=== PATIENT | male | born 1955 | race Caucasian/White ===

== ENCOUNTER 2018-07-28 03:05 | Inpatient (IN) | payer MEDICARE, MEDICAID ==
[~2018-07-28] VITALS: Ht 175.3 cm; Wt 64.9 kg
[2018-07-28] VITALS (50 sets, daily range): BP systolic 54–176; BP diastolic 14–111
[2018-07-28] MEDS ORDERED: ACETAMINOPHEN 325MG TABLET PO STA (03:37)
[2018-07-28] MEDS ORDERED: PIPERACILLIN/TAZ 3.375G PREMIX 50 ML IV ONE (03:45)
[2018-07-28] MEDS ORDERED: VANCOMYCIN 1 G PREMIX 200 ML IV ONE (03:45)
[2018-07-28] MEDS ORDERED: AZITHROMYCIN 500 MG in DEXT 5% WATER 250 ML IV ONE (03:45)
[2018-07-28 04:39] LABS: HEMATOCRIT. 38.9 % (42.0-52.0); HEMOGLOBIN. 12.8 g/dL (14.0-18.0); MEAN CORPUSCULAR HEMOGLOBIN 29.4 pg (28.0-32.0); MEAN CORPUSCULAR VOLUME 89.5 fL (80.0-94.0); MEAN PLATELET VOLUME 8.9 fl (7.4-10.4); PLATELET 195 x1000/uL (130-400); RED BLOOD CELL COUNT 4.35 mill/uL (4.7-6.1)
[2018-07-28 04:43] LABS: CHLORIDE 100 mEq/L (98-107)
[2018-07-28 04:45] LABS: INR 1.1; PARTIAL THROMBOPLASTIN TIME 33.2 sec (23.4-31.0); PROTHROMBIN TIME 11.2 sec (9.1-11.1)
[2018-07-28] MEDS ORDERED: SODIUM CHLORIDE 0.9% 1000ML BAG (SEPSIS BOLUS) IV ONE (05:00)
[2018-07-28 06:24] LABS: CLARITY URINE CLEAR (CLEAR); COLOR URINE YELLOW (YELLOW); KETONES URINE 1+ (NEGATIVE); LEUKOCYTE ESTERASE URINE NEGATIVE (NEGATIVE); NITRITE URINE NEGATIVE (NEGATIVE); OCCULT BLOOD URINE 2+ (NEGATIVE); PROTEIN URINE 2+ (NEGATIVE); SPECIFIC GRAVITY URINE 1.027 (1.005-1.030); UROBILINOGEN URINE 0.2 E.U./dL (0.2-1.0)
[2018-07-28 06:42] LABS: PLATELET ESTIMATE NORMAL
[2018-07-28] MEDS ORDERED: IPRATROPIUM/ALBUTEROL 0.5-3(2.5)MG/3ML NEB HHN PRN ×2 (11:15→14:45)
[2018-07-28] MEDS ORDERED: ACETAMINOPHEN 325MG TABLET PO PRN (11:15)
[2018-07-28] MEDS ORDERED: GUAIFENESIN-DM 200MG-20MG/10ML UDC PO PRN (11:15)
[2018-07-28] MEDS: ENOXAPARIN 40MG/0.4ML SYR SUBCUT SCH (11:30)
[2018-07-28] MEDS: NOREPINEPHRINE 4 MG in DEXT 5% WATER 246 ML IV PRN ×2 (13:00→17:00)
[2018-07-28] MEDS ORDERED: CEFTRIAXONE 1 G PREMIX 50 ML IV SCH (13:00)
[2018-07-28] MEDS: MIDODRINE HCL 5MG TABLET PO SCH ×2 (13:51→17:53)
[2018-07-28 14:26] LABS: HEPATITIS B SURFACE ANTIGEN NEGATIVE
[2018-07-28 14:56] LABS: HEPATITIS A AB IGM NEGATIVE (NEGATIVE)
[2018-07-28] MEDS: PHENYLEPHRINE 40 MG in DEXT 5% WATER 246 ML IV PRN (18:17)
[2018-07-28] MEDS: LORAZEPAM 2MG/ML CPJ IV PRN (19:00)
[2018-07-28] MEDS ORDERED: CARB200C4 MT (19:17)
[2018-07-28] MEDS ORDERED: AMIT25TA9 MT (19:17)
[2018-07-28] MEDS ORDERED: DIVA500T51 MT (19:17)
[2018-07-28] MEDS ORDERED: BUSP15TA3 MT (19:17)
[2018-07-28] MEDS: BUDESONIDE 0.5MG/2ML NEB HHN SCH (20:02)
[2018-07-28] MEDS: IPRATROPIUM BROMIDE (0.02%) 0.5MG/2.5ML NEB HHN SCH (20:02)
[2018-07-28] MEDS: DEXT 5%/0.45% NACL KCL 20MEQ/L 1,000 ML IV SCH (22:48)
[2018-07-29] VITALS (87 sets, daily range): BP systolic 35–128; BP diastolic 16–88
[2018-07-29] MEDS: IPRATROPIUM BROMIDE (0.02%) 0.5MG/2.5ML NEB HHN SCH ×6 (00:12→20:15)
[2018-07-29] MEDS: ACETYLCYSTEINE 100MG/ML 10% VIAL 4ML INH SCH ×2 (00:12→08:38)
[2018-07-29] MEDS: LORAZEPAM 2MG/ML CPJ IV PRN ×4 (01:33→22:24)
[2018-07-29] MEDS: NOREPINEPHRINE 4 MG in DEXT 5% WATER 246 ML IV PRN ×3 (02:07→10:25)
[2018-07-29] MEDS: PHENYLEPHRINE 40 MG in DEXT 5% WATER 246 ML IV PRN ×6 (03:12→23:51)
[2018-07-29 05:37] LABS: HEMATOCRIT. 38.3 % (42.0-52.0); HEMOGLOBIN. 12.8 g/dL (14.0-18.0); MEAN CORPUSCULAR HEMOGLOBIN 29.7 pg (28.0-32.0); MEAN CORPUSCULAR VOLUME 89.1 fL (80.0-94.0); MEAN PLATELET VOLUME 8.4 fl (7.4-10.4); PLATELET 240 x1000/uL (130-400)
[2018-07-29 05:46] LABS: CHLORIDE 105 mEq/L (98-107)
[2018-07-29 07:43] LABS: BG BASE EXCESS 1.9 mmol/L (-2.0-2.0); BG BILEVEL POS AIRWAY PRESSURE 15/5; BG CARBOXYHEMOGLOBIN 0.5 % (0.5-1.5); BG DEOXYHEMOGLOBIN 2.1 % (0.0-5.0); BG HCO3 ACT 25.1 mmol/L (22.0-26.0); BG METHEMOGLOBIN 0.2 % (0.0-1.5); BG OXYGEN SATURATION 97.9 % (92.0-98.5); BG OXYHEMOGLOBIN 97.2 % (94.0-97.0); BG PCO2 34.7 mmHg (35.0-45.0); BG PH 7.478 (7.350-7.450); BG PO2 103.6 mmHg (75.0-100.0); BG SAMPLE SITE RIGHT RADIAL; BG TOTAL HEMOGLOBIN 12.8 g/dL (12.0-18.0); BG VENT MODE MASK - BIPAP; BG VENT RATE 14 set
[2018-07-29] MEDS ORDERED: LIDOCAINE HCL 1% 20ML VIAL (Pyxis) INJ ONE (08:06)
[2018-07-29] MEDS: BUDESONIDE 0.5MG/2ML NEB HHN SCH ×2 (08:37→20:16)
[2018-07-29] MEDS: DEXT 5%/0.45% NACL KCL 20MEQ/L 1,000 ML IV SCH ×2 (08:47→20:58)
[2018-07-29] MEDS: MIDODRINE HCL 5MG TABLET PO SCH ×3 (09:00→17:00)
[2018-07-29] MEDS ORDERED: AZITHROMYCIN 500 MG TABLET PO SCH (09:00)
[2018-07-29] MEDS ORDERED: MORPHINE SULFATE 10 MG/ML CPJ IV PRN (09:15)
[2018-07-29] MEDS: ENOXAPARIN 40MG/0.4ML SYR SUBCUT SCH (09:30)
[2018-07-29 09:50] LABS: PLATELET ESTIMATE NORMAL
[2018-07-29] MEDS ORDERED: VANCOMYCIN 1 G PREMIX 200 ML IV SCH (10:00)
[2018-07-29] MEDS ORDERED: MORPHINE SULFATE 10 MG/ML CPJ IV NR (10:15)
[2018-07-29] MEDS ORDERED: ATROPINE SULFATE 1% OPHTH 2ML SL PRN (11:00)
[2018-07-29] MEDS: PIPERACILLIN/TAZ 3.375G PREMIX 50 ML IV SCH ×2 (11:49→17:58)
[2018-07-29] MEDS: VANCOMYCIN 1 G PREMIX 200 ML IV SCH (12:03)
[2018-07-29] MEDS ORDERED: NOREPINEPHRINE 8 MG in DEXT 5% WATER 492 ML IV PRN (13:20)
[2018-07-29] MEDS: NOREPINEPHRINE 8 MG in DEXT 5% WATER 492 ML IV PRN ×3 (13:50→23:53)
[2018-07-29] MEDS: MORPHINE SULFATE 10 MG/ML CPJ IV PRN (17:51)
[2018-07-30] VITALS (79 sets, daily range): BP systolic 63–182; BP diastolic 28–128
[2018-07-30] MEDS: IPRATROPIUM BROMIDE (0.02%) 0.5MG/2.5ML NEB HHN SCH ×4 (00:20→20:34)
[2018-07-30] MEDS: PIPERACILLIN/TAZ 3.375G PREMIX 50 ML IV SCH ×3 (01:06→12:12)
[2018-07-30] MEDS: VANCOMYCIN 1 G PREMIX 200 ML IV SCH ×3 (01:50→22:24)
[2018-07-30] MEDS: PHENYLEPHRINE 40 MG in DEXT 5% WATER 246 ML IV PRN ×2 (03:28→07:40)
[2018-07-30] MEDS: LORAZEPAM 2MG/ML CPJ IV PRN ×2 (03:43→18:01)
[2018-07-30] MEDS: MORPHINE SULFATE 10 MG/ML CPJ IV PRN ×3 (04:55→15:29)
[2018-07-30 05:05] LABS: HEMATOCRIT. 42.2 % (42.0-52.0); HEMOGLOBIN. 13.9 g/dL (14.0-18.0); MEAN CORPUSCULAR HEMOGLOBIN 29.2 pg (28.0-32.0); MEAN CORPUSCULAR VOLUME 88.6 fL (80.0-94.0); MEAN PLATELET VOLUME 7.3 fl (7.4-10.4); PLATELET 181 x1000/uL (130-400); RED BLOOD CELL COUNT 4.77 mill/uL (4.7-6.1); RED CELL DISTRIBUTION WIDTH 14.3 % (11.6-14.6)
[2018-07-30 05:24] LABS: CHLORIDE 98 mEq/L (98-107)
[2018-07-30] MEDS: CEFTRIAXONE 2 G in DEXTROSE 5% WATER 50 ML IV SCH ×2 (07:40→22:25)
[2018-07-30] MEDS ORDERED: PHENYLEPHRINE 80 MG in DEXT 5% WATER 492 ML IV PRN ×2 (07:47→20:00)
[2018-07-30] MEDS: BUDESONIDE 0.5MG/2ML NEB HHN SCH ×2 (07:55→20:34)
[2018-07-30 07:59] LABS: PLATELET ESTIMATE NORMAL
[2018-07-30] MEDS ORDERED: PHENYLEPHRINE 80 MG in DEXT 5% WATER 500 ML IV PRN (08:00)
[2018-07-30] MEDS: MIDODRINE HCL 5MG TABLET PO SCH ×3 (08:49→17:00)
[2018-07-30] MEDS: ENOXAPARIN 40MG/0.4ML SYR SUBCUT SCH (08:49)
[2018-07-30] MEDS: DEXT 5%/0.45% NACL KCL 20MEQ/L 1,000 ML IV SCH ×3 (08:49→23:30)
[2018-07-30] MEDS: NOREPINEPHRINE 8 MG in DEXT 5% WATER 492 ML IV PRN (09:21)
[2018-07-30] MEDS: PANTOPRAZOLE SODIUM 40 MG/VIAL IV SCH (12:17)
[2018-07-31] VITALS (48 sets, daily range): BP systolic 90–164; BP diastolic 29–96
[2018-07-31] MEDS: IPRATROPIUM BROMIDE (0.02%) 0.5MG/2.5ML NEB HHN SCH ×6 (00:22→19:54)
[2018-07-31] MEDS: LORAZEPAM 2MG/ML CPJ IV PRN ×3 (04:30→19:54)
[2018-07-31] MEDS: VANCOMYCIN 1 G PREMIX 200 ML IV SCH ×3 (04:30→20:15)
[2018-07-31 05:31] LABS: CHLORIDE 102 mEq/L (98-107)
[2018-07-31 06:35] LABS: MEAN CORPUSCULAR HEMOGLOBIN 30.1 pg (28.0-32.0); MEAN CORPUSCULAR VOLUME 87.7 fL (80.0-94.0); MEAN PLATELET VOLUME 8.2 fl (7.4-10.4); PLATELET 96 x1000/uL (130-400); RED BLOOD CELL COUNT 3.64 mill/uL (4.7-6.1)
[2018-07-31] MEDS: MORPHINE SULFATE 10 MG/ML CPJ IV PRN ×3 (07:14→23:42)
[2018-07-31 07:40] LABS: PLATELET ESTIMATE DECREASED
[2018-07-31] MEDS: CEFTRIAXONE 2 G in DEXTROSE 5% WATER 50 ML IV SCH ×2 (07:54→19:30)
[2018-07-31] MEDS: BUDESONIDE 0.5MG/2ML NEB HHN SCH ×2 (08:36)
[2018-07-31] MEDS: PANTOPRAZOLE SODIUM 40 MG/VIAL IV SCH (08:46)
[2018-07-31] MEDS: ENOXAPARIN 40MG/0.4ML SYR SUBCUT SCH (08:46)
[2018-07-31] MEDS: MIDODRINE HCL 5MG TABLET PO SCH ×3 (08:46→17:00)
[2018-07-31] MEDS: DEXT 5%/0.45% NACL KCL 20MEQ/L 1,000 ML IV SCH ×2 (10:23→20:15)
[2018-08-01] VITALS (45 sets, daily range): BP systolic 84–192; BP diastolic 25–144
[2018-08-01] MEDS: IPRATROPIUM BROMIDE (0.02%) 0.5MG/2.5ML NEB HHN SCH ×7 (00:19→23:57)
[2018-08-01] MEDS: VANCOMYCIN 1 G PREMIX 200 ML IV SCH ×2 (03:55→11:37)
[2018-08-01] MEDS: LORAZEPAM 2MG/ML CPJ IV PRN ×3 (05:23→20:54)
[2018-08-01 05:46] LABS: HEMATOCRIT. 29.3 % (42.0-52.0); HEMOGLOBIN. 10.2 g/dL (14.0-18.0); MEAN CORPUSCULAR HEMOGLOBIN 30.6 pg (28.0-32.0); MEAN CORPUSCULAR VOLUME 88.4 fL (80.0-94.0); MEAN PLATELET VOLUME 8.6 fl (7.4-10.4); PLATELET 95 x1000/uL (130-400); RED BLOOD CELL COUNT 3.32 mill/uL (4.7-6.1)
[2018-08-01 05:56] LABS: CHLORIDE 107 mEq/L (98-107)
[2018-08-01] MEDS: DEXT 5%/0.45% NACL KCL 20MEQ/L 1,000 ML IV SCH ×2 (06:19→14:32)
[2018-08-01] MEDS: MORPHINE SULFATE 10 MG/ML CPJ IV PRN ×3 (07:55→14:31)
[2018-08-01] MEDS: CEFTRIAXONE 2 G in DEXTROSE 5% WATER 50 ML IV SCH ×2 (07:55→19:38)
[2018-08-01 07:56] LABS: PLATELET ESTIMATE DECREASED
[2018-08-01] MEDS: ENOXAPARIN 40MG/0.4ML SYR SUBCUT SCH (08:03)
[2018-08-01] MEDS: MIDODRINE HCL 5MG TABLET PO SCH ×3 (09:00→16:52)
[2018-08-01] MEDS: PANTOPRAZOLE SODIUM 40 MG/VIAL IV SCH (09:43)
[2018-08-02] VITALS (35 sets, daily range): BP systolic 63–223; BP diastolic 23–124
[2018-08-02] MEDS: MORPHINE SULFATE 10 MG/ML CPJ IV PRN (01:18)
[2018-08-02] MEDS: DEXT 5%/0.45% NACL KCL 20MEQ/L 1,000 ML IV SCH (03:36)
[2018-08-02] MEDS: IPRATROPIUM BROMIDE (0.02%) 0.5MG/2.5ML NEB HHN SCH ×2 (04:13→08:51)
[2018-08-02] MEDS: LORAZEPAM 2MG/ML CPJ IV PRN (04:33)
[2018-08-02 05:37] LABS: HEMATOCRIT. 30.4 % (42.0-52.0); HEMOGLOBIN. 10.3 g/dL (14.0-18.0); MEAN CORPUSCULAR HEMOGLOBIN 29.9 pg (28.0-32.0); MEAN CORPUSCULAR VOLUME 88.6 fL (80.0-94.0); MEAN PLATELET VOLUME 8.5 fl (7.4-10.4); PLATELET 133 x1000/uL (130-400); RED BLOOD CELL COUNT 3.43 mill/uL (4.7-6.1); RED CELL DISTRIBUTION WIDTH 13.9 % (11.6-14.6)
[2018-08-02 05:40] LABS: CHLORIDE 109 mEq/L (98-107)
[2018-08-02] MEDS: MIDODRINE HCL 5MG TABLET PO SCH (08:19)
[2018-08-02] MEDS: PANTOPRAZOLE SODIUM 40 MG/VIAL IV SCH (08:19)
[2018-08-02] MEDS: ENOXAPARIN 40MG/0.4ML SYR SUBCUT SCH (08:19)
[2018-08-02] MEDS: CEFTRIAXONE 2 G in DEXTROSE 5% WATER 50 ML IV SCH (08:19)
[2018-08-02 11:00] LABS: PLATELET ESTIMATE NORMAL
[2018-08-02] MEDS ORDERED: MORPHINE SULFATE 250 MG in DEXT 5% WATER 240 ML IV PRN (13:00)
== END 2018-08-02 14:26 | disposition expired | DRG 871 ==
LOC: ER 03:05 → 5EST 05:41 → EDBEDREQ 05:44 → EDBEDREQTM 05:44 → ENRESERV 07:42 → MICUSO 11:50
PROVIDERS: ADMIT Internal Medicine; ATTEND Internal Medicine
PROC: 5A09357 Assistance with Respiratory Ventilation, Less than 24 Consecutive Hours, Continuous Positive Airway Pressure (ICD-10-PCS; 2018-07-28)
PROC: 02HV33Z Insertion of Infusion Device into Superior Vena Cava, Percutaneous Approach (ICD-10-PCS; principal; 2018-07-29)
PROC: B548ZZA Ultrasonography of Superior Vena Cava, Guidance (ICD-10-PCS; 2018-07-29)
PROC: 5A09357 Assistance with Respiratory Ventilation, Less than 24 Consecutive Hours, Continuous Positive Airway Pressure (ICD-10-PCS; 2018-07-29)
PROC: 5A09457 Assistance with Respiratory Ventilation, 24-96 Consecutive Hours, Continuous Positive Airway Pressure (ICD-10-PCS; 2018-07-30)
DX: A40.3 Sepsis due to Streptococcus pneumoniae (principal); G93.41 Metabolic encephalopathy; R65.21 Severe sepsis with septic shock; J18.1 Lobar pneumonia, unspecified organism; J96.20 Acute and chronic respiratory failure, unspecified whether with hypoxia or hypercapnia; E44.0 Moderate protein-calorie malnutrition; J44.0 Chronic obstructive pulmonary disease with (acute) lower respiratory infection; Z66 Do not resuscitate; D64.9 Anemia, unspecified; B18.2 Chronic viral hepatitis C; I95.9 Hypotension, unspecified; G40.909 Epilepsy, unspecified, not intractable, without status epilepticus; Z51.5 Encounter for palliative care; Z87.820 Personal history of traumatic brain injury; Z68.21 Body mass index [BMI] 21.0-21.9, adult; Z87.891 Personal history of nicotine dependence
CPT/HCPCS: 36415; 36569; 36600; 71045; 76937; 80048; 80202; 82140; 82375; 82805; 83036; 83605; 83880; 84145; 84484; 86705; 86709; 86803; 87077; 87186; 87340; 87804; 92610; 93005; 93306; 93970; 94640; 94660; 96365; 96366; 96368; 99291; C1725; C9113; J0456; J0696; J1650; J2060; J2270; J2370; J2543; J3370; J3490; J7040; J7050; J7060; J7608; J7626; A4315